=== PATIENT | female | born 1980 | race Caucasian/White ===

== ENCOUNTER 2024-10-17 11:28 | Emergency (ER) | payer BC, OTHER ==
[~2024-10-17] VITALS: Ht 160 cm; Wt 84.4 kg
[2024-10-17] MEDS ORDERED: METOCLOPRAMIDE HCL 10 MG/2 ML VIAL ONE (12:05)
[2024-10-17] MEDS: IV NORMAL SALINE 1000 ML BAG IV ONE (12:10)
[2024-10-17] MEDS: METOCLOPRAMIDE HCL 10 MG/2 ML VIAL IV ONE (12:10)
[2024-10-17 12:11] LABS: BASOPHILS % (AUTO) 0.3 % (0.0-2.0); EOSINOPHILS % (AUTO) 0.1 % (0.0-7.0); HEMATOCRIT 41.1 % (31.2-41.9); HEMOGLOBIN 13.9 g/dL (10.9-14.3); LYMPHOCYTES # (AUTO) 0.7 K/uL (0.8-4.8); MEAN CORPUSCULAR HEMOGLOBIN 30.2 uug (24.7-32.8); MEAN CORPUSCULAR HGB CONC 34 g/dL (32.3-35.6); MEAN CORPUSCULAR VOLUME 89.2 fL (75.5-95.3); MONOCYTES # (AUTO) 0.5 K/uL (0.1-1.30); MONOCYTES % (AUTO) 3.9 % (0.0-11.0); NEUTROPHILS # (AUTO) 12.2 K/uL (1.8-8.9); NEUTROPHILS % (AUTO) 90.7 % (38.5-71.5); PLATELET COUNT (AUTO) 236 K/uL (179-408); RED BLOOD CELL COUNT(AUTO) 4.61 MIL/uL (3.63-4.92); RED CELL DISTRIBUTION WIDTH 13.6 % (12.3-17.7); WHITE BLOOD COUNT (AUTO) 13.4 K/uL (3.8-11.8)
[2024-10-17 12:19] LABS: CALCIUM 8.2 mg/dL (8.5-10.1); CARBON DIOXIDE 27 mmol/L (21-32); CHLORIDE 101 mmol/L (98-107); CREATININE 0.8 mg/dL (0.6-1.3); GLUCOSE 112 mg/dL (74-106); POTASSIUM 3.7 mmol/L (3.5-5.1); SODIUM SERUM 138 mmol/L (136-145); UREA NITROGEN, BLOOD 14 mg/dL (7-18)
[2024-10-17 12:24] LABS: DIFFERENTIAL COMMENT 1
[2024-10-17 12:32] LABS: ALANINE AMINOTRANSFERASE 25 U/L (14-59); ALBUMIN 3.4 g/dL (3.4-5.0); ALKALINE PHOSPHATASE 79 U/L (50-136); ASPARTATE AMINOTRANSFERASE 22 U/L (15-37); BILIRUBIN,DIRECT 0.1 mg/dL (0.0-0.2); BILIRUBIN,TOTAL 0.6 mg/dL (0.2-1.0); NT-PRO BNP 26 pg/mL (0-125); TOTAL PROTEIN, SERUM 7.3 g/dL (6.4-8.2)
[2024-10-17 12:47] LABS: LACTIC ACID 2.2 mmol/L (0.4-2.0)
[2024-10-17 13:35] VITALS: BP 162/92; TEMP 98; O2SAT 98
[2024-10-17 13:57] LABS: *BILIRUBIN,URIN NEGATIVE (NEGATIVE); *CLARITY,URINE CLEAR (CLEAR); *COLOR,URINE YELLOW (YELLOW); *KETONES,URINE NEGATIVE (NEGATIVE); *PROTEIN,URINE NEGATIVE (NEGATIVE); LEUKOCYTE ESTERASE ,URINE NEGATIVE (NEGATIVE); NITRITE, URINE NEGATIVE (NEGATIVE); PH,URINE 6.5 (5.0-8.0); UGLUCOSE NEGATIVE (NEGATIVE)
[2024-10-17 13:59] LABS: *BLOOD, URINE TRACE (NEGATIVE)
[2024-10-17 14:00] LABS: *URINE HCG, QUAL NEGATIVE (NEGATIVE)
[2024-10-17] MEDS ORDERED: AZIT500T PO (14:10)
[2024-10-17] MEDS ORDERED: METO-295 PO (14:14)
[2024-10-17 14:31] LABS: RBC,URINE 0-3 /HPF (0-3)
[2024-10-17 14:32] LABS: SQUAMOUS EPITHELIAL CELL,UR FEW /HPF (NONE SEEN)
== END 2024-10-17 13:35 | disposition home or self-care (01) ==
LOC: ER 11:28
DX: R10.9 Unspecified abdominal pain (principal); R11.2 Nausea with vomiting, unspecified; R00.0 Tachycardia, unspecified
CPT/HCPCS: 99285; 96374; 71045; 96361; 80076; 80048; 81001; 84703; 83880; 85025; 84145; 85730; 87040 ×2; 87086; 84484; 36415; 93005; 83605; J2765; J7040; A4606; A4663

== ENCOUNTER 2024-12-01 15:53 | Emergency (ER) | payer OTHER, BC ==
[~2024-12-01] VITALS: Ht 160 cm; Wt 90.7 kg
[~2024-12-01 15:53] MED LIST: AZIT500T PO; METO-295 PO
[2024-12-01 17:10] LABS: BASOPHILS # (AUTO) 0.1 K/UL (0.0-0.2); BASOPHILS % (AUTO) 0.9 % (0.0-2.0); EOSINOPHILS # (AUTO) 0.1 K/uL (0.0-0.7); HEMATOCRIT 40.9 % (31.2-41.9); LYMPHOCYTES # (AUTO) 2.5 K/uL (0.8-4.8); MEAN CORPUSCULAR HEMOGLOBIN 30.3 uug (24.7-32.8); MEAN CORPUSCULAR HGB CONC 34 g/dL (32.3-35.6); MEAN CORPUSCULAR VOLUME 88.8 fL (75.5-95.3); MONOCYTES # (AUTO) 0.6 K/uL (0.1-1.30); MONOCYTES % (AUTO) 6.5 % (0.0-11.0); NEUTROPHILS # (AUTO) 6.6 K/uL (1.8-8.9); NEUTROPHILS % (AUTO) 66.6 % (38.5-71.5); PLATELET COUNT (AUTO) 302 K/uL (179-408); RED BLOOD CELL COUNT(AUTO) 4.61 MIL/uL (3.63-4.92); RED CELL DISTRIBUTION WIDTH 13.6 % (12.3-17.7); WHITE BLOOD COUNT (AUTO) 9.9 K/uL (3.8-11.8)
[2024-12-01 17:12] LABS: CALCIUM 9.8 mg/dL (8.5-10.1); CARBON DIOXIDE 26 mmol/L (21-32); CHLORIDE 104 mmol/L (98-107); CREATININE 0.9 mg/dL (0.6-1.3); GLUCOSE 105 mg/dL (74-106); POTASSIUM 3.7 mmol/L (3.5-5.1); SODIUM SERUM 141 mmol/L (136-145); UREA NITROGEN, BLOOD 12 mg/dL (7-18)
[2024-12-01 17:17] LABS: ALANINE AMINOTRANSFERASE 24 U/L (14-59); ALBUMIN 3.8 g/dL (3.4-5.0); ALKALINE PHOSPHATASE 69 U/L (50-136); ASPARTATE AMINOTRANSFERASE 19 U/L (15-37); BILIRUBIN,DIRECT 0.1 mg/dL (0.0-0.2); BILIRUBIN,TOTAL 0.3 mg/dL (0.2-1.0)
[2024-12-01 17:42] LABS: MAGNESIUM 1.8 mg/dL (1.8-2.4)
[2024-12-01 18:25] VITALS: O2SAT 99
== END 2024-12-01 18:27 | disposition home or self-care (01) ==
LOC: ER 15:53
DX: R07.89 Other chest pain (principal); R00.0 Tachycardia, unspecified; E88.810 Metabolic syndrome; I10 Essential (primary) hypertension
CPT/HCPCS: 36415; 71045; 83735; 84484; 85025; A4606; A4663